=== PATIENT | male | born 1945 | race African-American/Black ===

== ENCOUNTER 2016-09-18 19:16 | Inpatient (IN) | payer OTHER ==
--- NOTE | ~2016-09-18 | CT71 ---
[facility] A Service [facility] RADIOLOGY TEXT RESULTS PATIENT: JAKE MENESES LOCATION: [facility] 335- : 47 UNIT #: [id number] AGE: [address]: Jacqueline Cardenas MD SEX: M ORDER DR: [id number] [facility] [address] [place], [place] [address] [id number] I MR#: [id number] #: [id number] NAME: JAKE MENESES : 1945 SEX: M STUDY DATE/TIME: 09/18/2016 20:07 UNIT: [address] ROOM: [facility] STUDY DESCRIPTION: CT Head Wo Contrast Attending Physician: Jacqueline Cardenas M.D. Ordering Physician: Jake Wilkes M.D. Primary Care Physician: Claribel Álvarez M.D. MEDICAL IMAGING REPORT This report is preliminary unless electronic signature is present EXAM CT brain without contrast media HISTORY Woke up this morning with slurred speech. History of cardiac issues, hypertension and diabetes. TECHNIQUE Transaxial imaging of the brain was performed without contrast media. This CT exam was performed with one or more of the following radiation dose reduction techniques: Automatic exposure control, adjustment of mA and/or kV according to patient size, and iterative reconstruction. FINDINGS Ventricular size and configuration is diffusely prominent. There are focal areas of decreased attenuation in the periventricular white matter in both hemispheres. No mass lesions, mass effect, evidence of acute hemorrhage or edema. There is atherosclerotic calcifications in the vertebrobasilar system and extensive calcifications in the carotid siphons. Bone windows are reviewed. There is left sphenoid and right ethmoid sinus disease. Bony elements are intact. CONCLUSION 1. Atrophy with chronic periventricular deep white matter ischemic changes. No acute intracranial findings. 2. Atherosclerotic disease in the vertebral arteries and basilar artery as well as throughout both carotid siphons. 3. Left sphenoid and bilateral ethmoid sinus disease. Dictated by... Stevo Estrada M.D. [facility] A Service of [facility] RADIOLOGY TEXT RESULTS PATIENT: JAKE MENESES LOCATION: [facility] 335-01 : 47 UNIT #: [id number] AGE: [address]: Jacqueline Cardenas MD SEX: M ORDER DR: THIS IS AN ELECTRONICALLY VERIFIED REPORT Stevo Estrada M.D. at 09/22/2016 7:21 AM NESHA/alex TD: 09/18/2016 23:58 JOB #: [id number] MEDICAL IMAGING REPORT Page 1 of 1 COPY
--- NOTE | ~2016-09-18 | CO ---
Unit #: [id number] #: [id number] Patient: JAKE MENESES [id number] [facility] [address]. [place], [place] [address] [id number] I MR#: [id number] NAME: JAKE MENESES ROOM: 335 Age: 70 Sex: M Admission Date: 09/18/2016 : 1945 Attending Physician: Jacqueline Cardenas M.D. Primary Care Physician: Claribel Álvarez M.D. Consultation Date: 09/19/2016 CONSULTATION REPORT PRIMARY CARE PHYSICIAN Dr. Jacqueline Cardenas. REASON FOR CONSULTATION CVA. PATIENT IDENTIFICATION This is a 70-year-old, right-handed, male evaluated in room 335 at [facility]. SOURCE OF INFORMATION Obtained from the patient as well as the medical record. HISTORY OF PRESENT ILLNESS This is a very pleasant, right-handed, 70-year-old, male with a past medical history of CAD, with history of coronary artery bypass grafting as well as stents, diabetes mellitus type 2, hypertension, hyperlipidemia, and tobacco use who presented to [facility] with complaints of slurred speech. The patient states that he was in his usual state of health on the day prior to admission. He states when he woke up on the morning of admission, he went to take his dog out and reports that when he was talking to his dog, he noted that his speech was abnormal. He states that he could get his words out just fine, but he thought they sounded a little bit slurred or "thick tongued." He states that he felt a little bit off balance, but reports that he has been feeling off balance because his left hip has been bothering him. He denies any exacerbating or alleviating factors. He denies any trouble with writing, using his arms or legs or any comprehension or getting his words out. He denies any numbness in the face, arms or legs and reports that he decided to come to the hospital as he continued to have abnormal speech. He states that he knew something did not seem right. CT of the head without contrast showed atrophy and chronic periventricular deep white matter ischemic changes, but no acute intracranial findings. We did an MRI of the brain today without contrast that shows a focus of recent ischemic insult in the posterior limb of the left internal capsule, most consistent with a recent small vessel insult, nonhemorrhagic and not associated with significant mass effect and also shows extensive probable sequelae of small vessel disease and areas of likely old blood product deposition in the right frontal cortex and left cerebellar hemisphere. Of note, there was also confluent signal abnormality in the mayda centrally and evaluating the patient clinically likely due to small-vessel disease. Nothing to suggest clinically or per history any toxic or osmotic demyelination. The patient reports continued dysarthria. He had an episode of sinus bradycardia last night. Otherwise, he denies complaint. Unit #: [id number] #: [id number] Patient: JAKE MENESES PAST MEDICAL HISTORY 1. CAD with history of CABG. He has a history of cardiac stent with reocclusion secondary to noncompliance with medications. 2. Diabetes mellitus, type 2. 3. Hypertension. 4. Hyperlipidemia. 5. Three-vessel coronary artery bypass grafting in 1999. 6. GERD. 7. Anemia. 8. EGD that revealed mild gastritis and colonoscopy with no evidence of acute bleed in 2008. 9. Tobacco use continued. 10. Cardiac catheterization in 01/2008 that revealed proximal saphenous vein graft in the obtuse marginal with 90% to 95% stenosis, reduced to 0%, angioplasty and stent drug-eluting, severe three vessel coronary disease, patent left internal mammary artery to the left anterior descending, patent saphenous vein graft to the diagonal branch with patent stent in the saphenous vein graft to the diagonal branch, patent but severely diseased saphenous vein graft to the obtuse marginal. The circumflex ejection fraction was 60% to 65%. He had a 2D echo in 2008 that showed EF greater than 55%. No significant valvular disease. 11. Hypertension. FAMILY HISTORY Positive for CAD though his parents in their 70s and 80s. SOCIAL HISTORY The patient has been to his for 47 years. He has 2 adult children. He is retired from the [employer] in 1999. He denies alcohol use or abuse or illicit drug use. He continues to smoke tobacco, less than one pack per day. ALLERGIES No known drug allergies. HOME MEDICATIONS Include hydralazine, Effient, amlodipine besylate, tamsulosin, metformin ER, Zestoretic, Crestor he takes 20 mg p.o. daily, aspirin he takes 81 mg p.o. daily, atenolol, Amaryl, Lantus insulin. REVIEW OF SYSTEMS 14-point review of systems was done. Pertinent positives are as discussed above, otherwise negative. PHYSICAL EXAMINATION VITAL SIGNS: Temperature 98.3, pulse 53, respirations 17, blood pressure 156/83, oxygen saturation 98%, height 5 feet 9 inches, and weight 169 pounds, BMI 25. NEUROLOGIC: The patient is awake, pleasant, alert, and oriented to person, place, and time as well as events. He has no right or left confusion. No finger agnosia. He is not aphasic or apraxic. He has some trouble with phonation and articulation, certainly he is dysarthric. He follows 2 and 3-step commands. He is a little emotional, but he states that he is a very emotional man, has a lot of empathy and always has. Cranial nerve exam; he demonstrates full blount of vision. Eyes are conjugate without ptosis or nystagmus. Extraocular movements are intact. Unit #: [id number] #: [id number] Patient: GIDEONJAKE Enio Sensation of face and scalp is intact. Strength of the muscles of facial expression does reveal some mild right facial asymmetry, but no obvious flattening of the nasolabial fold. Hearing is intact to finger rub and conversation. Tongue is midline. Uvula, he does appear to have better palate elevation on the left compared to the right. No tongue deviation. Head turning and shoulder shrug is unremarkable. Neck is supple. Motor exam, he demonstrates essentially normal bulk and tone. Strength is essentially equal in all extremities, 5/5. He does have a little bit difficulty in his left hip when he ambulates, but he states that this is an ongoing issue that he is being treated for as an outpatient. Gait otherwise unremarkable. Romberg deferred. Reflexes 1/4. Toes are equivocal. Coordination unremarkable. No past-pointing. DIAGNOSTIC STUDIES IMAGING STUDIES: MRI of the brain without contrast, please see above. MRA of the neck without and with contrast on 09/19/2016; impression per Radiology report, by NASCET criteria, about 10% diameter stenosis originally in the left internal carotid artery, 0% stenosis originally in the right internal carotid artery. Both vertebral arteries are patent, though there is some possibly superimposed disease. Left is mildly dominant and concern for a focus of hemodynamically significant stenosis in the more distal right vertebral artery in the neck. MRA of the head without contrast on 09/19/2016; impression per Radiology report, likely intracranial atherosclerotic disease, particularly given risk factors, there is irregularity of flow related enhancement in multiple vascular distributions, possible small supraclinoid left ICA aneurysm and possible small basilar tip aneurysm versus infundibulum in each of these locations. This is best further characterized as CT angiogram as the patient is a candidate. There was diminished flow to the right posterior cerebral artery distribution when compared to the left, probably due to intracranial atherosclerotic disease, but no discrete vascular cutoff is appreciated. LABORATORY RESULTS: CRP less than 0.5, hemoglobin A1c 7.1, TSH 1.47. Cholesterol is 99, triglycerides 84, LDL 44, HDL 38. Urinalysis, unremarkable. BMP unremarkable other than glucose of 146. PT 10.5, INR 1.0, PTT 26.2. CBC unremarkable. Troponin on arrival less than 0.05, glucose on arrival 126. CARDIOVASCULAR STUDIES: EKG; sinus bradycardia per Cardiology report, please see that report. IMPRESSION 1. Dysarthria, likely secondary to acute ischemic left. 2. internal capsule small-vessel stroke. 3. Bradycardia. 4. Tobacco use, cessation highly advised. 5. Hyperlipidemia, LDL 44. He is on intensive statin therapy with Crestor 20 mg p.o. daily. 6. Diabetes mellitus, type 2. Continue home medications. A1c is 7.1, may need to consider outpatient adjustment of medications. 7. Coronary artery disease with history of coronary artery bypass graft, defer to Cardiology. 8. Hypertension. 9. History of Arora palsy. Not mentioned above in the past medical history. 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 Unit #: [id number] #: [id number] Patient: JAKE MENESES PLAN We will continue his aspirin from a cardiac standpoint. Cardiology has discontinued his Effient and replaced the Plavix and we have discussed that with him and agree. This is likely a small vessel, etiology is infarct, and he has chronic small vessel disease, intracranial atherosclerotic disease. He absolutely needs to quit smoking completely and modify his risk factors and continue antiplatelet therapy. He has outpatient speech therapy. Physical therapy has cleared him. He does not have any history of valvular heart disease, and the 2D echo is pending. Recommend that he has an outpatient CT angiogram for abnormal MRA of the head and neck findings that are not contributing to his current problem that needs evaluation as outpatient and may benefit from further specialty evaluation after having an outpatient CT angiogram of the head and neck. He needs to follow up with Dr. Lorenzo Farah as an outpatient for his stroke. Otherwise, he can be discharged to follow up with outpatient physical therapy. Stroke education has been discussed with the patient as well at length by myself as well as by Dr. Jones who has seen him twice today. Please call for any questions or issues. Please also note, the patient was not a candidate for acute intervention with alteplase or for thrombectomy as he was outside the window upon arrival and woke up with symptoms, he sought treatment later that day and was not within the window for treatment with alteplase since symptoms are not suggestive of a large artery infarct. Thus, he was not a candidate. We thank you very much for allowing us to assist in the care of this patient. Dictated by... Tato BhatiaRMike. for Jossie Thornton/pennie TD: 09/20/2016 05:28 JOB #: [id number] CONSULTATION REPORT Page 1 of 1 X Kanchan Nair [employer] HAND X CONSULTATION REPORT
--- NOTE | ~2016-09-18 | MR18 ---
[facility] A Service of [facility] RADIOLOGY TEXT RESULTS PATIENT: JAKE MENESES LOCATION: [facility] 335- : 47 UNIT #: [id number] AGE: [address]: Jacqueline Cardneas MD SEX: M ORDER DR: [id number] [facility] [address] [place], [place] [address] [id number] I MR#: [id number] Acc #: [id number] NAME: JAKE MENESES : 1945 SEX: M STUDY DATE/TIME: 09/19/2016 11:03 [facility] ROOM: 335 STUDY DESCRIPTION: MR Brain Wo Contrast Attending Physician: Jacqueline Cardenas M.D. Ordering Physician: Ekaterina Jones M.D. Primary Care Physician: Claribel Álvarez M.D. MRI CENTER REPORT This report is preliminary unless electronic signature is present. EXAM MR brain without HISTORY CVA. Woke up with slurred speech 09/18/2016 and gait unsteadiness with problems writing. No history of cancer. History of hypertension, diabetes and a blood disorder. COMMENT MRI of the brain was performed without contrast using routine 1.5T imaging technique. There is a head CT for comparison from 09/18/2016. There is a focus of restricted diffusion seen in the posterior limb of the left internal capsule about 1.1 x 0.4 cm dimension. It is consistent with a recent small vessel insult. There is no appreciable hemorrhagic transformation or significant associated mass effect. There is a focus of susceptibility in the left inferior cerebellar hemisphere and in the right posterior medial frontal white matter probably related to old blood product deposition. There is extensive signal abnormality centrally in the mayda and fairly extensive white matter signal abnormality in the subcortical deep and periventricular white matter. Findings are probably due to small vessel disease. Please exclude any concern for some type of toxic or osmotic demyelination given the confluent signal abnormality in the mayda. The major intracranial flow voids are maintained. There is no extraaxial fluid collection. Small amount of fluid or inflammatory change left side mastoid tip. Patient has had cataract surgery bilaterally. There is mucosal disease in the left sphenoid sinus with some retained secretions. No intracranial mass effect or extraaxial fluid collection. IMPRESSION 1. There is a focus of recent ischemic insult involving the posterior STS. [facility] A Service of [facility] RADIOLOGY TEXT RESULTS PATIENT: JAKE MENESES LOCATION: [facility] 335-01 : 47 UNIT #: [id number] AGE: [address]: Jacqueline Cardenas MD SEX: M ORDER DR: limb of the left internal capsule most consistent with a recent small vessel insult. It is nonhemorrhagic and it is not associated with significant mass effect. 2. Extensive probable sequelae of small vessel disease. Of note, there is also confluent signal abnormality in the mayda centrally. This is probably due to small vessel disease but please exclude any concern for some toxic or osmotic demyelination given confluent signal abnormality in this location. 3. Likely areas of old blood product deposition in the right frontal cortex and left cerebellar hemisphere. STAT * RESULT Dictated by... Harper Barth M.D. THIS IS AN ELECTRONICALLY VERIFIED REPORT Harper Barth M.D. at 09/19/2016 1:23 PM JEN/ratna TD: 09/19/2016 13:16 JOB #: [id number] MRI CENTER REPORT Page 1 of 1 COPY
--- NOTE | ~2016-09-18 | MR133 ---
[facility] A Service of [facility] RADIOLOGY TEXT RESULTS PATIENT: JAKE MENESES LOCATION: [facility] 335- : 47 UNIT #: [id number] AGE: [address]: Jacqueline Cardenas MD SEX: M ORDER DR: [id number] [facility] [address] [place], [place] [address] [id number] I MR#: [id number] #: [id number] NAME: JAKE MENESES : 1945 SEX: M STUDY DATE/TIME: 09/19/2016 11:39 UNIT: [address] ROOM: [facility] STUDY DESCRIPTION: MR MRA Neck WWo Contrast Attending Physician: Jacqueline Cardenas M.D. Ordering Physician: Ekaterina Jones M.D. Primary Care Physician: Claribel Álvarez M.D. MRI CENTER REPORT This report is preliminary unless electronic signature is present. EXAM MR angiogram neck vessels with and without contrast 09/19/2016 HISTORY CVA, woke up with slurred speech on 09/18 16, gait unsteadiness, problems writing, no history of cancer, history of hypertension and diabetes. COMMENTS MR angiography neck vessels performed prior to and during intravenous administration of 15 mL MultiHance. See separate brain MRI and intracranial MR angiogram same time. FINDINGS By NASCET criteria essentially 0% stenosis at the right carotid bifurcation. There is some kinking of the cervical internal carotid artery on the right. On the left side by NASCET criteria estimate about 10% diameter stenosis at the origin of the left internal carotid artery. Both vertebral arteries are patent. I believe the left is slightly dominant. Both show some mild irregularity. Some of this could be artifactual but I suspect there are some true areas of stenosis at least in the right vertebral artery more distally in the neck. I believe the left vertebral artery arises from the arch and I cannot exclude mild narrowing at its origin. IMPRESSION By NASCET criteria about 10% diameter stenosis origin left internal carotid artery, 0% stenosis at the origin of the right internal carotid artery. Both vertebral arteries are patent though I believe there is some superimposed disease. Left is mildly dominant and concern for a focus of hemodynamically significant stenosis in the more distal right vertebral artery in the neck. [facility] A Service of [facility] RADIOLOGY TEXT RESULTS PATIENT: JAKE MENESES LOCATION: [facility] 335-01 : 47 UNIT #: [id number] AGE: [address]: Jacqueline Cardenas MD SEX: M ORDER DR: STAT * RESULT Dictated by... Harper Barth M.D. THIS IS AN ELECTRONICALLY VERIFIED REPORT Harper Barth M.D. at 09/19/2016 5:48 PM Mode TD: 09/19/2016 14:55 JOB #: [id number] MRI CENTER REPORT Page 1 of 1 COPY
--- NOTE | ~2016-09-18 | EKG ---
PATIENT: JAKE MENESES UNIT #: [id number] Ventricular Rate: 48 BPM Atrial Rate: 48 BPM P-R Interval: 168 ms QRS Duration: 98 ms Q-T Interval: 486 ms QTC Calculation(Bezet): 434 ms P [place]: 13 degrees Calculated R [place]: -17 degrees Calculated T [place]: 115 degrees Diagnosis Line: Sinus bradycardia Diagnosis Line: Cannot rule out Inferior infarct , age Diagnosis Line: undetermined Diagnosis Line: ST and T wave abnormality, consider lateral ischemia Diagnosis Line: Abnormal ECG Diagnosis Line: No previous ECGs available Diagnosis Line: Confirmed by MARTIN SONG MD ([id number]) on 09/19/2016 Diagnosis Line: 6:22:48 AM INTERPRETING MD: NOHEMI YANEZ
--- NOTE | ~2016-09-18 | DS ---
Unit #: [id number] #: [id number] Patient: JAKE MENESES [id number] [address] [place], [place] [address] [id number] I MR#: [id number] NAME: JAKE MENESES. ROOM: 335 Age: 70 Sex: M Admission Date: 09/18/2016 : 1945 Discharge Date: 09/19/2016 Attending Physician: Jacqueline Cardenas M.D. Primary Care Physician: Claribel Álvarez M.D. DISCHARGE SUMMARY SHORT-SUMMARY STAY CHIEF COMPLAINT Slurred speech. HISTORY OF PRESENTING ILLNESS A 70-year-old male with multiple medical problems including diabetes mellitus, hypertension, coronary artery disease with history of CABG, hyperlipidemia, tobacco abuse, history of Arora's palsy, moderate mitral regurgitation, mild tricuspid regurgitation, and moderate aortic stenosis, was admitted because of the slurred speech. The patient came to the ER. It had started the night before. But he waited till later on, it was not getting better. He is also having problem with the right arm weakness. He is having trouble signing his name. He does have left hip pain, but that is kind of chronic. The patient is being evaluated in room #35. Per the patient, he has improved a lot. He still has some slurred speech, but much improved. No complaint of syncopal episode or dizziness. No complaint of seizure activity. PAST MEDICAL HISTORY 1. Coronary artery disease, status post CABG. 2. Diabetes mellitus type 2. 3. Hypertension. 4. Hyperlipidemia. 5. GERD. 6. History of anemia in the past. 7. History of EGD in the past showing gastritis. PAST SURGICAL HISTORY 1. History of CABG, which was done in 1999. 2. History of angioplasty and stent placement in 2007. ALLERGIES No known drug allergies. SOCIAL HISTORY The patient is . He is a smoker. No history of alcohol abuse or drug abuse. FAMILY HISTORY Not significant. Unit #: [id number] #: [id number] Patient: JAKE MENESES REVIEW OF SYMPTOMS As per history of presenting illness. PHYSICAL EXAMINATION GENERAL: The patient is sitting in the bed in no respiratory distress. VITAL SIGNS: Blood pressure is 176/83, respiratory rate 17, pulse is 53, temperature 98.3. HEENT: Head is normocephalic. Eye movements are normal. NECK: Supple. CHEST: Fair air entry. No additional sounds. CVS: S1, S2 positive. Murmur is heard. ABDOMEN: Soft. EXTREMITIES: Negative edema. CURTAIN FITTER: The patient is awake, alert, oriented x3. He is still has dysarthria. DIAGNOSTIC STUDIES LABORATORY RESULTS: Workup done in the hospital; WBC 9.2, hemoglobin 14.4, hematocrit 43.5, platelet count of 194. PT/INR is 10.5 and 1.0. Sodium 139, potassium 3.9, chloride 107, BUN 9, creatinine 0.9, and calcium 9.4. Urinalysis was done, which shows normal. Lipid profile shows total cholesterol 99, triglycerides 84, LDL 44, and HDL 38. TSH is 1.47. Hemoglobin A1c 7.1. C-reactive protein is less than 0.5. IMAGING STUDIES: CT scan of the head without contrast was done, which shows atrophy with chronic periventricular deep white matter ischemic changes. No acute intracranial findings. Atherosclerotic disease in the vertebral arteries and basilar artery as well as throughout both carotid siphons. Left sphenoid and bilateral ethmoid sinus disease. MRI of the brain was done, which shows this is a focus of recent ischemic insult involving the posterior limb of the left internal capsule most consistent with a recent small vessel insult. It is non-hemorrhagic and it is not associated with significant mass effect. Extensive probable sequelae of small vessel disease. CONSULTATION DURING HOSPITALIZATION Dr. Morel from Cardiology [facility] because of bradycardia and Dr. Jones from [facility]. HOSPITAL COURSE The patient was admitted to telemetry unit. MRA was done. The patient does have small left brain infarct. The patient has a small vessel disease. He does have multiple risk factors including hypertension, hyperlipidemia, coronary artery disease, and tobacco abuse. The patient was on Effient at home that has been discontinued and Plavix is being started. This is as per Dr. Jones's recommendation. Dr. Morel evaluated the patient. Consult was done because of bradycardia. The patient does have history of significant coronary artery disease and has had CABG in the past. The patient has also had PCI and stent placement in the past. The patient is on beta-marly. Dose of beta-marly was decreased to 25 mg daily and Norvasc dose is being increased to 5 mg b.i.d. I have discussed with Dr. Jones and Neurologic Services. There is no need for JASON at this time. The patient has been encouraged to quit smoking. The patient is being discharged home and this has been confirmed with Neurology. Unit #: [id number] #: [id number] Patient: JAKE MENESES DISCHARGE INSTRUCTIONS 1. The patient is being discharged home in stable condition. 2. Effient is being discontinued and Plavix is being started. 3. Norvasc is increased in dose from 5 mg to 5 mg b.i.d. and atenolol is being decreased to 25 mg daily. 4. Tobacco cessation counseling done at length. 5. The patient needs to control his diet for diabetic control. Decreasing A1c less than 7 would help. Now, blood pressure control need to improve. The patient was evaluated by Speech and Physical therapy. The patient will need outpatient speech for dysarthria. Education has been provided. Exercises have been given to the patient. 6. The patient needs to follow up with Dr. Farah, neurologist as an outpatient. 7. Follow up Dr. Herrera on 11/18/2016 at 2:15 p.m. 8. Follow up primary care provider in 1 week to evaluate blood pressure and to control blood pressure. 9. Outpatient PT/OT and Speech therapy to be done. 10. Tobacco cessation counseling done. Dictated by... Jacqueline Cardenas M.D. DRE/pennie TD: 09/20/2016 03:14 JOB #: [id number] DISCHARGE SUMMARY Page 1 of 1 X Jacqueline Cardenas MD X DISCHARGE SUMMARY
--- NOTE | ~2016-09-18 | CO ---
Unit #: [id number] #: [id number] Patient: JAKE MENESES [id number] [facility]. [place], [place] [address] [id number] I MR#: [id number] NAME: JAKE MENESES ROOM: 335 Age: 70 Sex: M Admission Date: 09/18/2016 : 1945 Attending Physician: Jacqueline Cardenas M.D. Primary Care Physician: Claribel Álvarez M.D. Consultation Date: 09/19/2016 CONSULTATION REPORT REASON FOR CONSULTATION Bradycardia and cardiac management. HISTORY OF PRESENT ILLNESS This is a 70-year-old male with past medical history of hypertension, diabetes mellitus, coronary artery disease, had a previous CABG and prior to that, had multiple PCIs and stents. His CABG was in 1999. His last cardiac event was in 2012, where he had an [place]. He had an angioplasty and stent placed to the saphenous vein graft to the marginal branch at that time. He was noncompliant with taking his dual antiplatelet therapy and came back in 05/2013 and had another cardiac cath, which showed acute thrombotic occlusion in the saphenous vein graft to the marginal branch of the circumflex and also thrombotic occlusion to the marginal branch of the circumferential beyond the graft stenosis secondary to thrombus migration. Dr. Herrera had an inability to dilate the 90% in-stent stenosis secondary to fibrotic lesion and/or overlapping stents. His last echo was in 01/2016, which showed LVEF of 55% with moderate aortic stenosis and [id number] mitral regurgitation. The patient continues to smoke. He came into the emergency room after he woke up yesterday morning and had some issues, felt like he was slurring his speech and a little bit of an unsteady gait and problems with writing. The patient denies any weakness, numbness, or tingling in any of his extremities. He denies any dizziness, presyncope, or syncopal episode. He denies any chest pain or pain in his neck, bilateral jaws, shoulders, arms, or elbow. He denies any palpitations, dizziness, presyncope, or syncope. No shortness of breath. The patient said the slurring speech seems like it is intermittent along with unsteady gait. He thinks his writing is still not to baseline. The patient noted to have a history of Arora palsy, does have some little bit of facial droop from that condition. He came into the hospital for further evaluation and management. In the emergency room, the patient's blood pressure was 176/84, his heart rate was 52, respirations 18, temperature 98.7, O2 saturation was 99% on room air. CT of his head showed deep white matter changes. PAST MEDICAL HISTORY 1. History of coronary artery disease. Three-vessel coronary artery bypass graft in 2007, status post PCIs and stents. 2. Acute myocardial infarction, 12/2012. Status post coronary angioplasty of the saphenous vein bypass graft to the marginal branch with drug-eluting stent. 3. On 04/27/2013, status post cardiac cath after admission for chest pain Unit #: [id number] #: [id number] Patient: JAKE MENESES and that was performed by Dr. Rodriguez at [facility], which showed acute thrombotic occlusion in the saphenous vein graft to the marginal branch of the circumflex, secondary to discontinuation of dual antiplatelet therapy, thrombotic occlusion of the marginal branch of the circumferential beyond the graft stenosis secondary to thrombus migration and inability to dilate the 90% in-stent stenosis, probably secondary to fibrotic lesion or overlapping stents. 4. Hypertension. 5. Diabetes mellitus, type 2. 6. Arora palsy. 7. Hyperlipidemia. 8. Active nicotine abuse. 9. Last 2D echo, 01/2016, shows LVEF of 55%, moderate aortic stenosis, mild thickening of the mitral valve leaflets with [id number] mitral regurgitation and mild tricuspid regurgitation. PAST SURGICAL HISTORY Coronary artery bypass graft x3 in 2007; status post PCIs and stents, details unavailable; 12/2012, angioplasty and drug-eluting stent to the saphenous vein graft to the marginal branch. HOME MEDICATIONS Hydralazine 50 mg p.o. t.i.d., Effient 10 mg p.o. daily, amlodipine 5 mg p.o. daily, Flomax 0.4 mg p.o. daily, metformin 1000 mg p.o. b.i.d., Zestoretic 20/25 one tablet p.o. b.i.d., Crestor 20 mg p.o. daily, aspirin 81 mg p.o. daily, atenolol 50 mg p.o. daily, Amaryl 2 mg p.o. daily, Lantus 20 units subcu daily. ALLERGIES No known drug allergies. SOCIAL HISTORY The patient lives with his spouse. He is retired. He had quit smoking, but has resumed. He smokes about half a pack a day. He is off and on smoking most of his adult life. Denies alcohol or illicit drug abuse. FAMILY HISTORY Denies coronary artery disease in immediate family members. REVIEW OF SYSTEMS See details in HPI. PHYSICAL EXAMINATION GENERAL: Mr. Meneses is a 70-year-old male, in no acute respiratory distress. He is awake, alert, and oriented. He does have a slight right facial asymmetry, most likely secondary to his Arora palsy. His speech appears to be clear most of his conversation. Moves all extremities well. Bilaterally equal hand grasps. VITAL SIGNS: Blood pressure is 176/83, heart rate 54, respirations 16, temperature 98.3, O2 saturations 100% on room air. NECK: Trachea midline. No thyromegaly or lymphadenopathy. HEART: Heart sounds noted. S1 and S2. Regular rate and rhythm. Systolic murmur over aortic region at the left sternal border. LUNGS: Bilaterally clear throughout. No wheezes, rales, or rhonchi. ABDOMEN: Soft, nontender. Positive bowel sounds present. EXTREMITIES: Pedal pulses are palpable. No pedal edema. DIAGNOSTIC STUDIES Unit #: [id number] #: [id number] Patient: JAKE MENESES LABORATORY RESULTS: Glucose is 146, BUN 9, creatinine 0.9, eGFR is 101.4, sodium 139, potassium 3.9, chloride 107, CO2 of 24, calcium is 9.4. Hemoglobin A1c 7.1. TSH is 1.47. WBCs 9.0, hemoglobin 14.4, hematocrit 43.5, and platelets are 194. Initial cardiac enzymes; CK-MB is 1.7, troponin less than 0.05. INR is 1.0. Urinalysis; 1.0 urobilinogen. IMAGING STUDIES: CT of the head shows atrophy with chronic periventricular deep white matter ischemic changes, otherwise nothing acute. Also, atherosclerotic disease in the vertebral arteries and basilar artery as well as throughout both carotid siphons. MRI of the brain shows a focus of recent ischemic insult involving the posterior limb of the left internal capsule, most consistent with a recent small vessel insult, it is nonhemorrhagic. CARDIOVASCULAR STUDIES: EKG shows sinus bradycardia, heart rate 46 beats per minute, some nonspecific ST-T wave abnormalities in the lateral leads, left ventricular hypertrophy, left atrial abnormality. IMPRESSION 1. Slurred speech, unsteady gait, small vessel ischemic stroke. 2. Poorly controlled hypertension. 3. Bradycardia. 4. Coronary artery disease. 5. History of coronary artery bypass graft and multiple percutaneous coronary interventions and stents. See details in HPI. 6. Left ventricular ejection fraction of 55% with moderate aortic stenosis, [id number]-[id number] mitral regurgitation on 2D echo, 01/2016. 7. Diabetes mellitus, type 2. 8. History of Arora palsy. PLAN 1. Cardiology consult to assist with evaluation and management. 2. We will decrease the dose of the patient's atenolol because of the bradycardia. Heart rates in the 40s and 50s. The patient is asymptomatic. Denies any dizziness. 3. To help manage his blood pressure since cutting down the beta-marly, we will increase the Norvasc to 5 mg p.o. b.i.d. the patient is also on hydralazine and Zestoretic, we will continue those. 4. It is recommended from the neurologist to change the Effient because of the new small stroke to Plavix, which we will stop the Effient and start the Plavix 75 mg p.o. daily. 5. On exam, there are no signs or symptoms of any bleeding or acute anemia. 6. Encouraged the patient to completely quit smoking. Smoking cessation information provided to the patient. 7. We will check his carotid arteries to make sure there is nothing significant there. 8. On exam, there are no signs or symptoms of acute congestive heart failure or unstable angina. Cardiac enzymes are negative. EKG does not show anything acute. 9. Further recommendations pending per Dr. Morel. Dictated by... Janie Hand/nbal Unit #: [id number] #: [id number] Patient: JAKE MENESES TD: 09/20/2016 00:44 JOB #: [id number] CONSULTATION REPORT Page 1 of 1 X Amina Romero APRN CONSULTATION REPORT
--- NOTE | ~2016-09-18 | MR122 ---
[facility] A Service of [facility] & [facility] RADIOLOGY TEXT RESULTS PATIENT: JAKE MENESES LOCATION: A 335- : [birth year] UNIT #: [id number] AGE: [address]: Jacqueline Cardenas MD SEX: M ORDER DR: [id number] [facility] [address] [place], [place] [address] [id number] I MR#: [id number] Acc #: [id number] NAME: JAKE MENESES. : 1945 SEX: M STUDY DATE/TIME: 09/19/2016 11:30 [facility]: [facility] STUDY DESCRIPTION: MR MRA Head Wo Contrast Attending Physician: Jacqueline Cardenas M.D. Ordering Physician: Ekaetrina Jones M.D. Primary Care Physician: Claribel Álvarez M.D. MRI CENTER REPORT This report is preliminary unless electronic signature is present. EXAM MR angiogram the head without 09/19/2016 HISTORY Patient woke up with slurred speech, 09/18/2016, unsteady gait and problems writing, history of hypertension, diabetes and a blood disorder. COMMENT MR angiography performed [place] vasculature without contrast. See separate MRI brain and MR angiogram neck. FINDINGS There is origin to the right posterior cerebral artery distribution. Both posterior cerebral arteries are irregular with diminished flow to the right more so than the left probably due to intracranial atherosclerotic disease. There is mild irregularity of the distal vertebral arteries bilaterally. There is mild irregularity of the basilar artery probably all due to intracranial atherosclerotic disease. Mild irregularity of the anterior circulation in general. Probably a small anterior communicating artery present. 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 There may be a tiny posterior communicator on the left but configuration is more concerning for a small aneurysm at this time. If more information is needed for management purposes I would suggest correlation with a CT angiogram. There is also fullness at the tip of the basilar directed toward the right side at the origin of the P1 vessel and superior cerebellar artery which could be an infundibulum type structure or a small aneurysm. This would also be better evaluated with CT angiogram. IMPRESSION 1. Likely intracranial atherosclerotic disease particularly given risk factors. There is irregularity of the flow related enhancement in multiple vascular distributions. [facility] A Service of [facility] & [facility] RADIOLOGY TEXT RESULTS PATIENT: JAKE MENESES LOCATION: C3A 335-01 : [birth year] UNIT #: [id number] AGE: [address]: Jacqueline Cardenas MD SEX: M ORDER DR: 2. 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 This is best further characterized with a CT angiogram if the patient is candidate. There is diminished flow to the right posterior cerebral artery distribution when compared to the left probably due to intracranial atherosclerotic disease but no discrete vascular cutoff is appreciated. STAT * RESULT Dictated by... Harper Barth M.D. THIS IS AN ELECTRONICALLY VERIFIED REPORT Harper Barth M.D. at 09/19/2016 5:48 PM Mode TD: 09/19/2016 15:07 JOB #: [id number] MRI CENTER REPORT Page 1 of 1 COPY
--- NOTE | ~2016-09-18 | EKG ---
PATIENT: JAKE MENESES UNIT #: [id number] Ventricular Rate: 46 BPM Atrial Rate: 46 BPM P-R Interval: 158 ms QRS Duration: 98 ms Q-T Interval: 502 ms QTC Calculation(Bezet): 439 ms P [place]: 5 degrees Calculated R [place]: -15 degrees Calculated T [place]: 128 degrees Diagnosis Line: Marked sinus bradycardia Diagnosis Line: ST and T wave abnormality, consider lateral ischemia Diagnosis Line: Abnormal ECG Diagnosis Line: When compared with ECG of 18-SEP-2016 19:10, Diagnosis Line: (unconfirmed) Diagnosis Line: No significant change was found Diagnosis Line: Confirmed by LARRY BOYER MD ([id number]) on Diagnosis Line: 09/20/2016 4:45:49 PM INTERPRETING MD: HODA
[~2016-09-18 19:16] MED LIST: ACETAMINOPHEN PO; ADALAT CC PO; ASPIRIN; ASPIRIN PO; ATENOLOL; ATENOLOL PO; CRESTOR; CRESTOR PO; FINASTERIDE5 MG PO; FLEXERIL PO; FLOMAX0.4 M1 PO; GLYBURIDE; GLYBURIDE PO; GLYNASE PO; IBUPROFEN PO; KCL; KCL PO; LASIX; LASIX PO; LEVAQUIN PO; LISINOPRIL; LISINOPRIL PO; MEDROL PO; METFORMIN PO; NEURONTIN PO; NORVASC; PATIENT'S PHARMACY; PERCOCET7.5 PO; PLAVIX; PLAVIX PO; TRAMADOL HCL50 M1 PO; ULTRAM PO
[2016-09-18 19:51] LABS: POC - CKMB 1.7 ng/mL (0.0-7.9); POC - TROPONIN <0.05 ng/mL (<=0.05)
[2016-09-18 19:53] LABS: BASOPHIL# 0.1 X10e3 (0-0.3); BASOPHIL% 1.4 % (0-2.5); EOSINOPHIL# 0.2 X10e3 (0-0.7); EOSINOPHIL% 2.3 % (0.0-7.0); HEMATOCRIT 43.5 % (38.0-50.0); HEMOGLOBIN 14.4 gm/dL (13.0-16.0); LYMPHOCYTE# 1.7 X10e3 (1.0-3.5); LYMPHOCYTE% 19.2 % (17.0-45.0); MEAN CELL VOLUME 87.9 FL (83-96); MEAN CORPUSCULAR HEMOGLOBIN 29.1 PG (28-34); MEAN CORPUSCULAR HGB CONC 33.1 g/dL (30-36); MONOCYTE# 0.7 X10e3 (0-1.0); MONOCYTE% 7.5 % (3.0-12.0); NEUTROPHIL# 6.3 X10e3 (1.5-7.1); NEUTROPHIL% 69.6 % (40-75); PLATELET COUNT 194 X10e3 (140-420); RED BLOOD COUNT 4.95 X10e (3.90-5.60); RED CELL DISTRIBUTION WIDTH 14.5 % (11.0-15.5)
[2016-09-18 20:01] LABS: DIFF IND NO
[2016-09-18 20:11] LABS: PARTIAL THROMBOPLASTIN TIME 26.2 SECONDS (23.5-31.3); PROTHROMBIN TIME (PATIENT) 10.5 SECONDS (9.6-11.5)
[2016-09-18 20:31] LABS: CALCIUM SERUM 9.4 mg/dL (8.4-10.2); CREATININE SERUM 0.9 mg/dL (0.6-1.4); GLOM FILT RATE Estimated 101.4 mL/min (>60); POTASSIUM 3.9 mmol/L (3.5-5.1)
[2016-09-18] MEDS ORDERED: AMLODIPINE BESYL5 MG PO (20:56)
[2016-09-18] MEDS ORDERED: HYDRALAZINE HCL50 MG PO (20:56)
[2016-09-18] MEDS ORDERED: EFFIENT10 MG PO (20:56)
[2016-09-18] MEDS ORDERED: METFORMIN HCL1000 M1 PO (20:57)
[2016-09-18] MEDS ORDERED: FLOMAX0.4 M1 PO (20:57)
[2016-09-18] MEDS ORDERED: ZESTORETIC 20-1 EAC2 PO (20:58)
[2016-09-18] MEDS ORDERED: ASPIRIN81 M2 PO (20:59)
[2016-09-18] MEDS ORDERED: CRESTOR PO (20:59)
[2016-09-18] MEDS ORDERED: ATENOLOL50 MG PO (21:00)
[2016-09-18] MEDS ORDERED: AMARYL2 MG PO (21:00)
[2016-09-18] MEDS ORDERED: LANTUS100 U/ML SUBQ (21:01)
[2016-09-18 22:40] LABS: URINE SOURCE CLEAN CATCH
[2016-09-18 22:44] LABS: URINE APPEARANCE CLEAR; URINE BILIRUBIN NEG (NEG); URINE BLOOD NEG (NEG); URINE COLOR YELLOW; URINE GLUCOSE NEG (NEG); URINE KETONE NEG (NEG); URINE LEUKOCYTE ESTERASE NEG (NEG); URINE NITRATE NEG (NEG); URINE PROTEIN NEG (NEG); URINE SPECIFIC GRAVITY 1.012 (1.003-1.035)
[2016-09-18 22:48] LABS: CULTURE INDICATED? NO
[2016-09-19 06:51] LABS: CHOLESTEROL 99 mg/dL (0-200); HDL CHOLESTEROL 38 mg/dL (29-75); LDL CHOLESTEROL 44 mg/dL (-130); LDL/HDL RATIO 1 RATIO (0-4); TRIGLYCERIDES 84 mg/dL (10-160)
[2016-09-19] MEDS ORDERED: HYDROCHLOROTHIA25 MG PO (16:43)
[2016-09-19] MEDS ORDERED: LISINOPRIL20 MG PO (16:43)
[2016-09-19] MEDS ORDERED: CLOPIDOGREL75 MG PO (16:44)
== END 2016-09-19 17:30 | disposition home or self-care (01) | DRG 309 ==
LOC: CED 19:16 → CEDOF 21:50 → C3A PCU 23:27
PROVIDERS: Emergency Medicine; Physician Assistant Medical
PROC: B24BYZZ Ultrasonography of Heart with Aorta using Other Contrast (ICD-10-PCS; principal; 2016-09-19)
DX: R00.1 Bradycardia, unspecified (principal); I67.82 Cerebral ischemia; Z95.1 Presence of aortocoronary bypass graft; I10 Essential (primary) hypertension; R47.81 Slurred speech; I25.10 Atherosclerotic heart disease of native coronary artery without angina pectoris; Z79.01 Long term (current) use of anticoagulants; E78.5 Hyperlipidemia, unspecified; F17.210 Nicotine dependence, cigarettes, uncomplicated; I34.0 Nonrheumatic mitral (valve) insufficiency; I35.0 Nonrheumatic aortic (valve) stenosis; I25.2 Old myocardial infarction
CPT/HCPCS: 70450; 70544; 70549; 70551; 80048; 80061; 81003; 82553; 82947; 83036; 84443; 84484; 85025; 85610; 85730; 86140; 92523-GN; 93005; 93306; 97116; 97163; 99285; A9577; G8978-GP; G8979-GP; G8980-GP; G8999-GN; G9186-GN